=== PATIENT | female | born 1960 | race Caucasian/White ===

== ENCOUNTER 2017-10-16 11:53 | Emergency (ER) | payer MEDICARE, MEDICAID, SELFPAY ==
[2017-10-16 12:09] VITALS: BP 130/91; PULSE 68; RESP 16; TEMP 36.7; O2SAT 100
--- NOTE | 2017-10-16 12:32 | ED.GENADUL ---
Disposition Clinical Impression: Scalp laceration Disposition: HOME Condition: Fair Instructions: Contusion in Adults (ED) Additional Instructions: Encourage hydration. Monitor wound for signs of infection including redness, warmth, drainage, fever/chills, increased pain. If these arise please seek care urgently once again. If she changes from her baseline, develops vomiting, altered mental status (change from her baseline) other new/worsening symptoms please return immediately to the emergency department. I placed a Palliative care consult, you should hear from our housekeeper caregiver regarding follow-up. Please return to emergency department 7 days for staple removal. Referrals: Skip Doyle, [Primary Care Provider] - Primary Care Provider [Outside] Medical Decision Making - Medical Decision Making Patient presents today after striking her head in the shower when she slipped on feces. Patient is very difficult to assess given her advanced atypical Alzheimer's. Patient is blind at baseline and has a slow pupillary reflex equal bilaterally. No vomiting. The and daughter feel that she is at baseline. She appears in no acute distress. She is tremulous but they report that this is typical. He did question if she had diagnosis of Parkinson's and they advised that as of yet this is been linked to her Alzheimer's diagnosis. I did voice my concern that her neuro exam is very limited secondary to her chronic comorbidities. We did discuss that I would prefer to image her head to evaluate for possible bleed. However, the family would prefer to forego this at this time as it would require sedation to be able to get appropriate imaging secondary to her involuntary movements. lives approximately 2 [address] from the hospital is able to monitor her throughout the course of the day. He will seek care urgently if she develops any new or worsening symptoms. We then discussed closure of the scalp wound. They are concerned that she is not quite agitated and are concerned using shivani. However, given the location advised against adhesive. Will try topical anesthetic and will reassess. I discussed this plan with the patient and her family are in agreement. Patient has had decline recently and family is voicing a concern that they are unable to care for at home. reports that she is only sleeping for approximately 10 minutes at a time. He appears very fatigued. I did question if there is a palliative care consult. Amenable to. Replace care consult and have asked her care according to help facilitate follow-up. LET was applied to scalp laceration. This had to be applied twice to get the appropriate amount of anesthesia. The area was then tested with ADson forceps, she tolerated this well. Wounds was then copiously irrigated with sterile saline. Attention was turned to closure. #[address], patient tolerated this well. Patient kept in department for >2 hours. She remains at baseline. Has been eating and drinking while here. Family continues to decline sedation for CT. They seem very attentive and area able to bring her back should she develop new/worsening symptoms. Wound care was discussed. We discussed signs and symptoms of infection and when to seek care urgently once again. We discussed new/worsening symptoms of intracranial pathology and when to seek care urgently once again. Will follow up with primary care within the next week for reevaluation. Return in 1 week for staple removal. Palliative care consult has been placed. All the questions and concerns were addressed in agreement with this plan. History of Present Illness - General Chief complaint: HeadInjury Stated complaint: HEAD INJURY Time Seen by Provider: 10/16/17 12:32 Source: patient, family, RN notes reviewed Limitations: altered mental status - History of Present Illness Initial comments: Patient is a 57-year-old female, with history of atypical Alzheimer's, accompanied by her and daughter, with chief complaint of head injury. Patient is fairly phasic and has difficulty answering questions. Her reports that prior to arrival he was helping to shower.. Reports that she had a bowel movement while standing in the shower and then subsequently slipped on feces. States that she fell and struck the right side of her head. He denies any loss of consciousness. States that she also struck the posterior aspect of her right shoulder and he noted a small circumferential area of erythema over the superior aspect of the right scapula. He reports that the patient has been acting at her baseline. No vomiting. Patient is typically tremulous. She has chronic right arm pain. Patient is indicating to her hand when asked by asked her about any pain she is having currently. and daughter noted laceration to the right side of her scalp. - Related Data Desloratadine [Clarinex] 5 mg PO PRN PRN 07/21/15 Levalbuterol [Xopenex Hfa] 45 mcg IH Q4H PRN #3 inhaler 12/01/15 Donepezil HCl [Aricept] 10 mg PO HS 90 Days #90 tab 01/25/18 Allergies Allergy/AdvReac Type Severity Reaction Status Date / Time ibuprofen [From Motrin] Allergy Severe Skin Rash Unverified 08/11/16 15:06 sulfamethoxazole Allergy Severe Skin Rash Unverified 08/11/16 15:06 [From Bactrim] trimethoprim [From Bactrim] Allergy Severe Skin Rash Unverified 08/11/16 15:06 albuterol AdvReac Intermediate Tremors, Unverified 08/11/16 15:06 anxiety Review of Systems Limitations: ROS unobtainable due to patients medical condition Past Medical History - Past Medical History Medical history: asthma, dementia (atypical alzheimers), GERD gilberts, blindness - Social History Living Situation: lives with family General Exam - General Limitations: altered mental status, physical limitation General appearance: alert, in no apparent distress - Head Head exam: Absent: atraumatic (Kofi has a 3cm linear laceration to the right side of her scalp. Not actively bleeding. SubQ tissue visualized, does not appear to violate galea. Surrounding soft tissue swelling. ) - Eye Eye exam: Absent: normal apperance (patient has slow pupil response. FAmily reports she is blind. ) - ENT ENT exam: Present: mucous membranes dry, TM's normal bilaterally, normal external ear exam - Neck Neck exam: Present: normal inspection. Absent: tenderness - Respiratory Respiratory exam: Present: normal lung sounds bilaterally. Absent: respiratory distress - Cardiovascular Cardiovascular Exam: Present: irregular rhythm, normal heart sounds - Extremities Exam Extremities exam: Present: normal capillary refill. Absent: normal inspection (Exam the patient's right upper extremity is significant for 1.5 cm circumferential area of ecchymosis and swelling along the superior aspect of the right scapula. The patient try to move her shoulder is difficult secondary to her overall rigidity and tremor. However, no pain is elicited with palpation. I am able to range her elbow, wrist, hands slowly. No pain is elicited. Patient is able to actively forward elevate to 90?. I do not feel any joint swelling.), full ROM, tenderness, joint swelling - Back Exam Back exam: Present: other (patient has scoliosis ). Absent: tenderness - Neurological Exam Neurological exam: Present: alert, altered, normal gait (patient ambulating at baseline per family). Absent: oriented X3 - Skin Skin exam: Absent: intact (scalp laceration as above) Course Vital Signs - 24 hr 10/16/17 12:09 Temperature 36.7 C Pulse 68 Respiratory 16 Rate Blood Pressure 130/91 Pulse Oximetry 100 Procedures - Laceration Repair Consent Obtained: Verbal consent Copious Irrigation performed: Yes Laceration Length (cm): 3 Laceration Depth: Subcutaneous Bleeding Type/Amount: None Anesthetic: Local (topical LET) Note: #3 shivani placed
[2017-10-16 14:15] VITALS: BP 156/74; PULSE 68; RESP 18; TEMP 36.6; O2SAT 99
--- NOTE | 2017-10-16 14:23 | NUR.NOTE ---
Nursing Note: Pt tolerates stapling of head wound well and done briskly. Minimal bleeding. Staple line cleansed with saline . Pt eats and drinks following wound closure and interacting with family.
--- NOTE | 2017-10-17 08:17 | PDOC.ERCMPRO ---
Care Management Progress Note 10/17-Elisabeth NEW requested assistance with a Palliative Care Consult this week for advance alzheimer's. Family having difficulty caring for her at home. Referral faxed to Palliative Care today.
== END 2017-10-16 14:17 | disposition home or self-care (01) ==
PROVIDERS: Emergency Provider Physician Assistant; PCP Family Medicine
DX: S01.01XA Laceration without foreign body of scalp, initial encounter (principal); W18.2XXA Fall in (into) shower or empty bathtub, initial encounter; Y93.E1 Activity, personal bathing and showering; G30.8 Other Alzheimer's disease
CPT/HCPCS: 12002 ×2

== ENCOUNTER 2017-11-10 15:01 | Outpatient (REF) | payer MEDICARE, SELFPAY ==
[2017-11-10 16:58] LABS: Bilirubin Negative (Negative); Blood Moderate (Negative); Clarity Cloudy; Glucose Negative (Negative); Ketones Negative (Negative); Leukocyte Esterase Negative (Negative); Nitrite Negative (Negative); Specific Gravity >= 1.030 (1.005-1.025)
[2017-11-10 17:19] LABS: Bacteria Negative HPF (Negative); Epithelial Cells Few HPF (Negative); Other Cells Few Transitional (Negative); WBC 0-2 HPF (0-5)
[2017-11-10 17:20] LABS: C & S Indicated? C&S Done As Ordered; Casts Negative LPF (Negative); Crystals Many Amorphous HPF (Negative); Mucus Negative (Negative)
== END 2017-11-10 15:21 ==
LOC: LBN 15:01
PROVIDERS: PCP Family Medicine; Visit Provider Family Medicine
DX: N39.0 Urinary tract infection, site not specified (principal)
CPT/HCPCS: 81003; 81015; 87086

== ENCOUNTER 2018-05-25 11:15 | Outpatient (REF) | payer MEDICARE, SELFPAY ==
[2018-05-25 11:54] LABS: Bilirubin Negative (Negative); Blood Large (Negative); Clarity Cloudy; Glucose Negative (Negative); Ketones Trace mg/dL (Negative); Leukocyte Esterase Moderate (Negative); Nitrite Positive (Negative); pH 8.5 (5-8)
[2018-05-25 12:04] LABS: RBC >50 (0-2)
[2018-05-25 12:05] LABS: C & S Indicated? C&S Done As Ordered
== END 2018-05-25 11:35 ==
LOC: LBN 11:15
PROVIDERS: PCP Family Medicine; Visit Provider Family Medicine
DX: N39.0 Urinary tract infection, site not specified (principal)
CPT/HCPCS: 87077; 81003; 81015; 87086; 87186